=== PATIENT | female | born 1960 | race Caucasian/White ===

== ENCOUNTER → 2017-12-08 | Outpatient (CLI) | payer BC ==
[~2017-12-08] MED LIST: CALCIUM MAGNESIUM ZI; CHOL10002; ESTR2; MEDR5; OMEP20ER; Super B Comple150 MG
[2017-12-10 12:36] LABS: HPV Genotype 16 Not Detected (NOTDET); HPV Genotype 18 Not Detected (NOTDET)
[2017-12-20 11:35] LABS: HPV High Risk Other Not Detected (NOTDET)
== END | disposition home or self-care (01) ==
LOC: LAB 15:29 → LAB SHORT 15:29
PROVIDERS: Obstetrics & Gynecology
DX: Z01.419 Encounter for gynecological examination (general) (routine) without abnormal findings (principal)
CPT/HCPCS: 87624; G0123

== ENCOUNTER → 2018-01-19 | Outpatient (CLI) | payer BC | LOC: LAB SHORT 08:25 → LAB 08:25 | DX: R87.619 Unspecified abnormal cytological findings in specimens from cervix uteri (principal) | CPT/HCPCS: 88305 ==

== ENCOUNTER 2019-07-09 03:30 | Inpatient (IN) | payer BC ==
[~2019-07-09] VITALS: Ht 170.2 cm; Wt 96.2 kg
[~2019-07-09 03:30] MED LIST changes: -MEDR5; +MEDR5 PO
[2019-07-09] MEDS ORDERED: SETLAKIN 0.151 EAC1 PO (03:45)
[2019-07-09] MEDS ORDERED: Estradiol2 MG PO (03:45)
[2019-07-09 04:07] LABS: BASOPHILS ABSOLUTE AUTO 0.06 K/mm3 (0.00-0.23); BASOPHILS PERCENT AUTO 0 % (0-2); EOSINOPHILS ABSOLUTE AUTO 0.13 K/mm3 (0.00-0.68); EOSINOPHILS PERCENT AUTO 1 % (0-6); Hematocrit 47.1 % (33.0-51.0); Hemoglobin 15.3 g/dL (11.5-16.0); IMMATURE GRAN ABSOLUTE AUTO 0.12 K/mm3 (0.00-0.10); IMMATURE GRAN PERCENT AUTO 1 % (0-1); LYMPHOCYTES ABSOLUTE AUTO 0.82 K/mm3 (0.84-5.20); LYMPHOCYTES PERCENT AUTO 4 % (21-46); MONOCYTES ABSOLUTE AUTO 0.94 K/mm3 (0.16-1.47); MONOCYTES PERCENT AUTO 5 % (4-13); Mean Corpuscular HGB 28.4 pg (26.0-34.0); Mean Corpuscular HGB Conc 32.5 g/dL (31.5-36.5); Mean Corpuscular Volume 88 fL (80-100); Mean Platelet Volume 9.5 fL (9.1-12.4); NEUTROPHILS ABSOLUTE AUTO 17.07 K/mm3 (1.96-9.15); NEUTROPHILS PERCENT AUTO 89 % (41-73); Platelet Count 356 K/mm3 (150-400); RDW Coefficient Variation 14.4 % (11.7-14.2); RDW Standard Deviation 46.3 fL (35.1-46.3); Red Blood Cell Count 5.38 M/mm3 (3.80-5.20); White Blood Cell Count 19.14 K/mm3 (4.00-11.30)
[2019-07-09 04:25] LABS: Alanine Aminotransfer (ALT/SGP 32 U/L (12-78); Albumin, Blood 3.5 g/dL (3.4-5.0); Albumin/Globulin Ratio 0.7 (0.8-1.8); Alk Phos 75 U/L (50-136); Anion Gap 12 mmol/L (6-16); Aspartate Aminotrans (AST/SGOT 16 U/L (12-37); Bilirubin, Total 0.6 mg/dL (0.1-1.0); Blood Urea Nitrogen 11 mg/dL (8-24); Bun/Creatinine Ratio 14.6 (12.0-20.0); CO2, Blood 20 mmol/L (21-32); Calcium, Blood 9.5 mg/dL (8.5-10.1); Chloride, Blood 107 mmol/L (98-108); Creatinine, Blood 0.75 mg/dL (0.40-1.00); Globulin, Blood 5.1 g/dL (2.2-4.0); Glomerular Filtration Rate >60 (60-); Glucose, Blood 137 mg/dL (70-99); Potassium, Blood 3.3 mmol/L (3.5-5.5); Sodium, Blood 139 mmol/L (136-145); Total Protein, Blood 8.6 g/dL (6.4-8.2)
[2019-07-09 05:24] LABS: Source, Urine Clean Catch
[2019-07-09 05:27] LABS: Appearance, Urine Clear (Clear); Bilirubin, Urine Neg (Neg); Blood, Urine 4+ (Neg); Color, Urine Amber (P-Yellow); Glucose Qualitative, Urine 1+ (Neg); Ketones, Urine 2+ (Neg); Leukocyte Esterase, Urine 1+ (Neg); Nitrite, Urine Neg (Neg); Protein, Urine 3+ (Neg); Specific Gravity, Urine 1.015 (1.003-1.022); Urobilinogen, Urine NORM (Normal); pH, Urine 6.5 (5.0-8.0)
[2019-07-09 05:33] LABS: Bacteria Many /hpf; Granular Casts 0-2 /lpf (0); Mucus Mod (0-Heavy); Red Blood Cells, Urine 0-2 /hpf (0-2); Squamous Epithelial Cells Few /hpf (Few)
--- NOTE | 2019-07-09 11:51 | NUR ---
PT TO SURGERY AT THIS TIME WITH DAY SURGERY RN.
--- NOTE | 2019-07-09 11:55 | NUR ---
History, Chart, Medications and Allergies reviewed before start of procedure. Patient confirms NPO status and agrees with scheduled surgery.
--- NOTE | 2019-07-09 12:19 | NUR ---
Surgical site prepped with 2% Chlorhexidine cloth wipe.
--- NOTE | 2019-07-09 15:48 | NUR ---
PT BACK FROM SURGERY AT THIS TIME. ABD INCISIONS X4 CDI WITH STERI STRIPS. REPORTS TOLERABLE PAIN AT THIS TIME.
--- NOTE | 2019-07-09 16:38 | NUR ---
SHIFT SUMMARY PT HAD SURGERY TODAY. HAS BEEN TOLERATING SM AMTS PO FLUIDS AND ICE CHIPS. PAIN HAS BEEN TOLERABLE SINCE PT HAS BEEN BACK ON SURG FLOOR. FAMILY HAS BEEN AT BEDSIDE. SURGICAL INCISIONS X4 CDI WITH STERI STRIPS.
[2019-07-10 04:23] LABS: BASOPHILS ABSOLUTE AUTO 0.02 K/mm3 (0.00-0.23); BASOPHILS PERCENT AUTO 0 % (0-2); EOSINOPHILS ABSOLUTE AUTO 0.01 K/mm3 (0.00-0.68); EOSINOPHILS PERCENT AUTO 0 % (0-6); Hematocrit 35.3 % (33.0-51.0); Hemoglobin 11.3 g/dL (11.5-16.0); IMMATURE GRAN ABSOLUTE AUTO 0.19 K/mm3 (0.00-0.10); IMMATURE GRAN PERCENT AUTO 1 % (0-1); LYMPHOCYTES ABSOLUTE AUTO 0.75 K/mm3 (0.84-5.20); LYMPHOCYTES PERCENT AUTO 3 % (21-46); MONOCYTES ABSOLUTE AUTO 1.37 K/mm3 (0.16-1.47); MONOCYTES PERCENT AUTO 6 % (4-13); Mean Corpuscular Volume 88 fL (80-100); Mean Platelet Volume 9.3 fL (9.1-12.4); NEUTROPHILS ABSOLUTE AUTO 20.66 K/mm3 (1.96-9.15); NEUTROPHILS PERCENT AUTO 90 % (41-73); Platelet Count 340 K/mm3 (150-400); RDW Coefficient Variation 14.9 % (11.7-14.2); RDW Standard Deviation 47.7 fL (35.1-46.3); Red Blood Cell Count 4.03 M/mm3 (3.80-5.20)
[2019-07-10 04:47] LABS: Alanine Aminotransfer (ALT/SGP 42 U/L (12-78); Albumin, Blood 2.3 g/dL (3.4-5.0); Albumin/Globulin Ratio 0.5 (0.8-1.8); Alk Phos 55 U/L (50-136); Anion Gap 8 mmol/L (6-16); Aspartate Aminotrans (AST/SGOT 35 U/L (12-37); Bilirubin, Total 0.4 mg/dL (0.1-1.0); Blood Urea Nitrogen 10 mg/dL (8-24); Bun/Creatinine Ratio 14.6 (12.0-20.0); CO2, Blood 22 mmol/L (21-32); Calcium, Blood 8.3 mg/dL (8.5-10.1); Chloride, Blood 109 mmol/L (98-108); Creatinine, Blood 0.68 mg/dL (0.40-1.00); Globulin, Blood 4.2 g/dL (2.2-4.0); Glomerular Filtration Rate >60 (60-); Glucose, Blood 108 mg/dL (70-99); Potassium, Blood 3.8 mmol/L (3.5-5.5); Sodium, Blood 139 mmol/L (136-145); Total Protein, Blood 6.5 g/dL (6.4-8.2)
--- NOTE | 2019-07-10 06:53 | NUR ---
SUMMARY: POD [address] GUDINO. VSS, AFEBRILE, ROOM AIR, TOLERATING REG DIET WITHOUT NAUSEA AND PASSING MINIMAL FLATUS. VOIDING CLEAR, YELLOW URINE. PAIN WELL CONTROLLED WITH TORDAL AND 1 TAB NORCO X2 THIS SHIFT. ENCOURAGE OOB ACTIVITY AND POSSIBLE DC HOME LATER THIS DAY.
[2019-07-10] MEDS ORDERED: AMOCLA875 PO (13:59)
[2019-07-10] MEDS ORDERED: HYDR1TAB94 PO (14:00)
--- NOTE | 2019-07-10 15:00 | NUR ---
DISCHARGE SUMMARY PT A&OX4, VSS, LEFT FLOOR VIA WC WITH CALL CENTER COORDINATOR TO GO HOME WITH , WITH ALL PERSONAL POSSESSIONS. DC INSTR PROVIDED. PT REP UNDERSTANDING THOSE INSTRUCTIONS INCLUDING OK TO SHOWER, NO TUB, LEAVE STERIS IN PLACE UNTIL THEY COME OFF ON THEIR OWN 7-10 DAYS OR [facility] WILL REMOVE THEM, NO LIFTING > 10 LBS, SPLINTING WITH COUGH/SNEEZE/LAUGH, IV DC'D.
== END 2019-07-10 14:39 | disposition home or self-care (01) | DRG 419 ==
LOC: ER 03:30 → MEDS 10:11 → SURS 10:22
PROVIDERS: Emergency Medicine; ADMIT Surgery
PROC: BF101ZZ Fluoroscopy of Bile Ducts using Low Osmolar Contrast (ICD-10-PCS; 2019-07-09)
PROC: 0FT44ZZ Resection of Gallbladder, Percutaneous Endoscopic Approach (ICD-10-PCS; principal; 2019-07-09 11:45)
DX: K80.00 Calculus of gallbladder with acute cholecystitis without obstruction (principal); Z87.891 Personal history of nicotine dependence
CPT/HCPCS: 36415; 74177; 74300; 80053; 81001; 83690; 84484; 85025; 87086; 88304; 93005; 93010; 96361; 96365-59; 96375; 99285-25; A9270-GY; C1729; J1100; J1170; J1885; J2250; J2270; J2405; J2543; J2704; J3010; J7120; Q9967

== ENCOUNTER → 2019-12-12 | Outpatient (CLI) | payer BC ==
[~2019-12-12] MED LIST changes: +AMOCLA875 PO; +Estradiol2 MG PO; +HYDR1TAB94 PO; +SETLAKIN 0.151 EAC1 PO
== END | disposition home or self-care (01) ==
LOC: PLD 08:54 → LAB SHORT 08:54
DX: R93.89 Abnormal findings on diagnostic imaging of other specified body structures (principal)
CPT/HCPCS: 88305

== ENCOUNTER 2020-06-26 07:48 | Day surgery (SDC) | payer BC ==
[~2020-06-26] VITALS: Ht 170.2 cm; Wt 99.6 kg
[~2020-06-26 07:48] MED LIST changes: +CALCIUM MAG ZINC PO; +OMEP20ER PO; +VITAMIN D310 MC4 PO
--- NOTE | 2020-06-26 13:50 | NUR ---
PT HELD IN PACU BECAUSE OF NO SURGICAL FLOOR ORDERS. DR HARRISON WAS IN FAMILY DELIVERING A BABY.
--- NOTE | 2020-06-26 15:28 | NUR ---
LAVH ARRIVAL FROM PACU PT ARRIVED 1400 FROM PACU. POD0 FOR LAVH. PT IS A0X4. VSS. PT REPORTS PAIN 6/10 DENIES NAUSEA, NO VOMITING, NO CHEST PAIN/ PRESSURE, NO SOB, NO NUMBNESS AND NO TINGLING SENSATION. PT HAS 3 LAP ABD INCISION, CDI. PT HAS MILD ABD DISTENTION, TENDER, HYPOACTIVE. PT DENIES PASSING FLATUS. PT RADIAL AND PEDAL PULSES ARE STRONG. SHE HAS CLEAR LUNG SOUNDS. PT ALSO DENIES DIZZINESS. A SMALL VAGINAL BLEEDING ON PAD. URINARY CATHETER IN PLACED AND INTACT WITH 300ML URINE OUTPUT. CONTINOUS PAIN INCREASED AFTER AN HOUR. ENTERPRISE DATA ARCHITECT PUMP WITH FENTANYL IS ADMINSTERED FOR PAIN MANAGEMENT WITH 250 NS.
--- NOTE | 2020-06-26 19:36 | NUR ---
SHIFT SUMMARY PT A0X4. POD0 FOR LAVH. VSS. PAIN LEVEL IS 6/10, WELL CONTROLLED WITH BOG WORKER FENTANYL AND TORADOL. PT TOLERATING DINNER MEAL WELL. PT DENIES NAUSEA, NO VOMITING, NO PASSING FLATUS, NO DIZZINESS, NO NUMBNESS, NO TINGLING SENS, NO SOB, AND NO CHESTPAIN. SHE HAD A SMALL VAGINAL DISCHARG ON HER PAD. 3 ABD INCISION WITH STERI STRIP, CDI. PT ALSO HAS CATHETER IN PLACED WITH YELLOW CLEAR URINE, OUTPUT OF 300ML.
[2020-06-27 04:53] LABS: BASOPHILS ABSOLUTE AUTO 0.02 K/mm3 (0.00-0.23); BASOPHILS PERCENT AUTO 0 % (0-2); EOSINOPHILS ABSOLUTE AUTO 0.01 K/mm3 (0.00-0.68); EOSINOPHILS PERCENT AUTO 0 % (0-6); Hematocrit 37.3 % (33.0-51.0); Hemoglobin 12.1 g/dL (11.5-16.0); IMMATURE GRAN ABSOLUTE AUTO 0.04 K/mm3 (0.00-0.10); IMMATURE GRAN PERCENT AUTO 0 % (0-1); LYMPHOCYTES ABSOLUTE AUTO 1.09 K/mm3 (0.84-5.20); LYMPHOCYTES PERCENT AUTO 8 % (21-46); MONOCYTES ABSOLUTE AUTO 0.74 K/mm3 (0.16-1.47); MONOCYTES PERCENT AUTO 5 % (4-13); Mean Corpuscular HGB 28.3 pg (26.0-34.0); Mean Corpuscular HGB Conc 32.4 g/dL (31.5-36.5); Mean Corpuscular Volume 87 fL (80-100); Mean Platelet Volume 9.3 fL (9.1-12.4); NEUTROPHILS ABSOLUTE AUTO 11.85 K/mm3 (1.96-9.15); NEUTROPHILS PERCENT AUTO 86 % (41-73); Platelet Count 340 K/mm3 (150-400); RDW Standard Deviation 44.5 fL (35.1-46.3); Red Blood Cell Count 4.28 M/mm3 (3.80-5.20); White Blood Cell Count 13.75 K/mm3 (4.00-11.30)
--- NOTE | 2020-06-27 05:46 | NUR ---
SHIFT SUMMARY [facility] POD1, A/O X4, VSS, PAIN WELL CONTROLLED W/ CHIEF PORT DIRECTOR CONTINUOUS DOSE, PT DENIES NEEDING TO USE CHIEF PORT DIRECTOR DOSE BUTTON FOR ADDITIONAL PAIN CONTROL, SCANT SPOTTING ON EDY PAD. CALL LIGHT IN REACH, WILL CONTINUE TO MONITOR AND REPORT TO ONCOMING DAY RN.
--- NOTE | 2020-06-27 06:55 | NUR ---
recvd report from previous shift rn Samuel, pt sitting up in bed, a/o x 4, pleasant/cooperative, denies pain at this time. call light within reach, bed rails up x2, bed in lowest position
--- NOTE | 2020-06-27 11:55 | NUR ---
dr jason rounding on pt, discharge orders expected
[2020-06-27] MEDS ORDERED: Percocet 5-3251 EACH PO (13:10)
[2020-06-27] MEDS ORDERED: IBUP800 PO (13:11)
--- NOTE | 2020-06-27 13:23 | NUR ---
PROVIDED PT WITH DISCHARGE INSTRUCTIONS, PRINTED MATERIAL, PRESCRIPTION FOR ANALGESIA; PT AND STATE UNDERSTANDING OF INSTRUCTIONS. PERIPHERAL IV REMOVED WNL. PT DECLINES WHEELCHAIR ESCORT TO AWAITING VEHICLE. PT'S CARRIED HER BELONGINGS TO VEHICLE
== END 2020-06-27 13:33 | disposition home or self-care (01) ==
LOC: ORSCMMR 07:48 → ORD 09:00 → SURS 14:57 → ORSCMMR 06-27 13:33
PROVIDERS: Obstetrics & Gynecology
DX: N93.8 Other specified abnormal uterine and vaginal bleeding (principal); D25.9 Leiomyoma of uterus, unspecified; K21.9 Gastro-esophageal reflux disease without esophagitis; Z79.899 Other long term (current) drug therapy; Z87.891 Personal history of nicotine dependence; E66.9 Obesity, unspecified; Z68.34 Body mass index [BMI] 34.0-34.9, adult
CPT/HCPCS: 36415; 85025; 88307; 94762; A9270; J0690; J1100; J1885; J2250; J2370; J2405; J2704; J3010; J7050; J7120